=== PATIENT | male | born 1930 | race Caucasian/White ===

== ENCOUNTER 2021-11-14 13:48 | Emergency (ER) | payer MEDICARE ==
[~2021-11-14] VITALS: Ht 172.7 cm; Wt 65.3 kg
--- NOTE | 2021-11-14 14:09 | NUR ---
RIOS DAUGHTER [phone]
--- NOTE | 2021-11-14 14:55 | NUR ---
IV LINE ESTABLISHED ON RAC #20, BLOOD DRAWN AND SENT TO LAB.
[2021-11-14 15:12] LABS: BASOPHILS % (AUTO) 0.6 % (0.0-2.0); HEMATOCRIT 37 % (39-51); HEMOGLOBIN 12.4 g/dL (13.5-17.5); LYMPHOCYTES # (AUTO) 1.2 K/uL (0.8-4.8); LYMPHOCYTES % (AUTO) 19.9 % (20.0-44.0); MEAN CORPUSCULAR HGB CONC 34 g/dl (31.0-36.0); MEAN CORPUSCULAR VOLUME 96 fL (80-96); MONOCYTES # (AUTO) 0.3 K/uL (0.1-1.30); MONOCYTES % (AUTO) 5.6 % (2.0-12.0); NEUTROPHILS # (AUTO) 4.3 K/uL (1.8-8.9); NEUTROPHILS % (AUTO) 72.9 % (43.0-81.0); PLATELET COUNT (AUTO) 225 K/uL (150-450); RED BLOOD CELL COUNT(AUTO) 3.83 MIL/uL (4.5-6.0); WHITE BLOOD COUNT (AUTO) 5.8 K/uL (4.3-11.0)
[2021-11-14 15:34] LABS: CALCIUM, SERUM 9.1 mg/dL (8.5-10.1); CARBON DIOXIDE 23 mmol/L (21-32); CHLORIDE 107 mmol/L (98-107); CREATININE 0.9 mg/dL (0.6-1.3); GLUCOSE 98 mg/dL (74-106); SODIUM SERUM 141 mmol/L (136-145); UREA NITROGEN, BLOOD 22 mg/dL (7-18)
[2021-11-14] MEDS ORDERED: IOHEXOL-300 100 ML VIAL IV ONE (15:42)
[2021-11-14] MEDS ORDERED: IV NS 0.9% 250 ML IV ONE (15:42)
[2021-11-14] MEDS ORDERED: CT SWABBABLE VALVE TRANS SET 1 EA INFUS.SET MC ONE (15:42)
--- NOTE | 2021-11-14 15:51 | NUR ---
PT PICKED UP BY RADIOLOGY FOR CT SCAN
--- NOTE | 2021-11-14 16:05 | NUR ---
PT BACK FROM RADIOLOGY
[2021-11-14 17:00] VITALS: BP 144/72
--- NOTE | 2021-11-14 17:18 | NUR ---
IV removed. Catheter intact and site benign. Pressure and 4x4 applied to site. No bleeding noted.Patient discharged to home in stable condition. Written and verbal after care instructions given. Patient verbalizes understanding of instruction.
== END 2021-11-14 17:21 | disposition home or self-care (01) ==
LOC: ER 13:54
DX: S50.311A Abrasion of right elbow, initial encounter (principal); R07.81 Pleurodynia; I10 Essential (primary) hypertension; V89.2XXA Person injured in unspecified motor-vehicle accident, traffic, initial encounter; Y93.89 Activity, other specified; Y92.89 Other specified places as the place of occurrence of the external cause; Y99.8 Other external cause status; R51.9 Headache, unspecified; M54.2 Cervicalgia
CPT/HCPCS: 99285; 72125; 71260; 70450; 85025; 80048; 36415; J7050; Q9967